=== PATIENT | female | born 1985 | race Caucasian/White ===

== ENCOUNTER 2018-08-04 09:48 | Emergency (ER) | payer MEDICAID ==
[~2018-08-04] VITALS: Ht 157.5 cm; Wt 64.0 kg
[~2018-08-04 09:48] MED LIST: HYDR-3240 PO; IBUP-1223 PO; MELO15TA24 PO; OXYC-302 PO; SERT100T PO
--- NOTE | 2018-08-04 10:24 | NUR ---
C/O 4DAYS COUGH, CONGESTION, SORE THROAT, GEN BODY ACHES
--- NOTE | 2018-08-04 10:46 | NUR ---
DR QUESADA AT BEDSIDE, POC DISCUSSED AND ORDERS REC'D. PT AMB TO BATHROOM UPRIGHT STEADY GAIT. CLEAN CATCH URINE SAMPLE COLLECTED.
[2018-08-04 11:06] LABS: CULTURE INDICATED? YES; MICROSCOPIC INDICATED
[2018-08-04 11:38] VITALS: BP 104/69
--- NOTE | 2018-08-04 11:38 | NUR ---
ALL TEST RESULTS POSTED, CHART UP FOR RECHECK
== END 2018-08-04 13:33 | disposition home or self-care (01) ==
LOC: ED 11:07
DX: J02.9 Acute pharyngitis, unspecified (principal); N30.00 Acute cystitis without hematuria; Z87.891 Personal history of nicotine dependence
CPT/HCPCS: 71046; 81001; 87086; 99284

== ENCOUNTER 2018-12-31 10:40 | Emergency (ER) | payer MEDICAID ==
[~2018-12-31] VITALS: Ht 157.5 cm; Wt 56.4 kg
[2018-12-31] MEDS ORDERED: KETOROLAC 30 MG/1 ML IM ONE (11:00)
[2018-12-31] MEDS ORDERED: KETOROLAC 30 MG/1 ML ONE (11:02)
[2018-12-31 12:08] VITALS: BP 90/52
== END 2018-12-31 12:12 | disposition home or self-care (01) ==
LOC: ED 12:02
DX: M54.2 Cervicalgia (principal); M54.6 Pain in thoracic spine; M25.511 Pain in right shoulder; Z87.891 Personal history of nicotine dependence
CPT/HCPCS: 72125; 73030; 96372; 99284; J1885

== ENCOUNTER 2019-04-09 19:48 | Emergency (ER) | payer MEDICAID ==
[~2019-04-09] VITALS: Ht 162.6 cm; Wt 56.0 kg
[2019-04-09 20:23] LABS: BASOPHILS # (AUTO) 0.04 x10^3/uL (0-0.1); BASOPHILS % (AUTO) 1 % (0-1); EOSINOPHILS # (AUTO) 0.12 x10^3/uL (0-0.4); EOSINOPHILS % (AUTO) 2 % (1-7); LYMPHOCYTES # (AUTO) 2.72 x10^3/uL (1-3.4); LYMPHOCYTES % (AUTO) 39 % (22-44); MD NO; MEAN CORPUSCULAR HEMOGLOBIN 32.5 pg (27.0-34.8); MEAN CORPUSCULAR VOLUME 98.5 fL (80-100); MEAN PLATELET VOLUME 8.7 fL (7.4-10.4); MONOCYTES # (AUTO) 0.35 x10^3/uL (0.2-0.8); MONOCYTES % (AUTO) 5 % (2-9); NEUTROPHILS # (AUTO) 3.73 x10^3/uL (1.8-6.8); NEUTROPHILS % (AUTO) 54 % (42-75); PLATELET COUNT 238 x10^3/uL (130-400); RED BLOOD COUNT 4.54 x10^6/uL (3.82-5.3); RED CELL DISTRIBUTION WIDTH 12.9 % (9.6-15.2)
[2019-04-09 20:28] LABS: ANION GAP 5 mmol/L (5-15); CALCIUM 8.7 mg/dL (8.5-10.1); CHLORIDE 109 mmol/L (98-107); CREATININE 0.83 mg/dL (0.55-1.02)
[2019-04-09 20:37] LABS: RAPID INFLUENZA A Negative (Negative); RAPID INFLUENZA B Negative (Negative)
--- NOTE | 2019-04-09 21:46 | NUR ---
PT TO ROOM FROM LOBBY AMBULATORY WITH STEADY GAIT. REPORTS "VISUAL DISTURBANCES" SINCE Sunday, GETTING PROGRESSIVELY WORSE. DENIES HEADACHE, DENIES ANY HX OF SAME. EKG DONE IN TRIAGE. VA'S COMPLETED. LABS DRAWN.
--- NOTE | 2019-04-09 21:50 | NUR ---
URINE SAMPLE REQUESTED, PT UNABLE TO PROVIDE AT THIS TIME.
[2019-04-09 22:36] LABS: HCG UR SG 1.037 (1.003-1.030)
[2019-04-09 22:38] LABS: CULTURE INDICATED? YES; MICROSCOPIC INDICATED
--- NOTE | 2019-04-09 22:52 | NUR ---
ALL RESULTS BACK AT THIS TIME, MD AWARE, PT TO BE D/C.
[2019-04-09] MEDS ORDERED: MECLIZINE CHEWABLE 25 MG TAB ONE (23:17)
[2019-04-09] MEDS ORDERED: KETOROLAC 30 MG/1 ML ONE (23:17)
[2019-04-09] MEDS ORDERED: MECLIZINE CHEWABLE 25 MG TAB PO ONE (23:30)
[2019-04-09] MEDS ORDERED: KETOROLAC 30 MG/1 ML IM ONE (23:30)
[2019-04-09 23:47] VITALS: BP 98/61
== END 2019-04-09 23:52 | disposition home or self-care (01) ==
LOC: ED 23:40
DX: R42 Dizziness and giddiness (principal); R11.2 Nausea with vomiting, unspecified; H57.89 Other specified disorders of eye and adnexa; R50.9 Fever, unspecified; R19.7 Diarrhea, unspecified; M54.2 Cervicalgia; M25.511 Pain in right shoulder; F17.210 Nicotine dependence, cigarettes, uncomplicated
CPT/HCPCS: 36415; 80048; 81001; 81025; 85025; 87086; 87400; 93005; 96372; 99284; J1885

== ENCOUNTER 2019-10-11 07:45 | Emergency (ER) | payer MEDICAID, OTHER ==
[~2019-10-11] VITALS: Ht 157.5 cm; Wt 53.4 kg
[2019-10-11 07:50] VITALS: BP 142/83
[2019-10-11] MEDS ORDERED: LORazepam 1MG TABLET ONE (08:14)
--- NOTE | 2019-10-11 08:15 | NUR ---
MEDICATED PER EMAR REVIEWED DISCHARGE/MEDICATION PLAN/HOW TO FIND PSYCHIATRIST FOR COUNSELING/MEDICATION MANAGEMENT
[2019-10-11] MEDS ORDERED: LORazepam 1MG TABLET PO ONE (08:30)
--- NOTE | 2019-10-11 09:05 | NUR ---
Patient given discharge instructions and they have confirmed that they understand the instructions. Patient ambulatory with steady gait.
== END 2019-10-11 09:05 | disposition home or self-care (01) ==
LOC: ED 08:13
DX: F31.9 Bipolar disorder, unspecified (principal)
CPT/HCPCS: 99283